=== PATIENT | female | born 1960 | race Caucasian/White ===

== ENCOUNTER 2016-08-21 14:46 | Emergency (ER) | payer OTHER ==
[~2016-08-21] VITALS: Ht 171.4 cm; Wt 90.9 kg
[2016-08-21 14:48] VITALS: BP 153/89; PULSE 80; RESP 16; O2SAT 97
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
[2016-08-21 18:16] VITALS: BP 144/87; PULSE 75; O2SAT 96
--- NOTE | 2016-08-21 19:54 | DRSVH ---
PROCEDURE: CT BRAIN WITHOUT CONTRAST ([id number]) INDICATIONS: follow-up abnormal finding. TECHNIQUE: Noncontrast 4.5 mm thick angled axial sections acquired from the foramen magnum to the vertex, with c oronal reformats. COMPARISON: [facility], CT, CT BRAIN WO CON, 08/21/2016, 15:09. FINDINGS: Image quality: Excellent. CSF spaces: Basal cisterns are patent. No extra-axial fluid collections. Ventricles are normal in size and shape. Brain: No midline shift. No intracranial masses. The punctate right basal ganglia hyperdense focus is unchanged when compared with the study from earlier today. Green-white matter interface is normal. Skull and face: Calvarium and visualized facial bones are intact, without suspicious lesions. Sinuses: Visualized sinuses and mastoids are clear. IMPRESSION: 1. Findings most consistent with right basal ganglia calcification. No findings to suggest acute intr acranial hemorrhage. Dictated by: Shira Garcia M.D. on 08/21/2016 at 19:48 Approved by: Shira Garcia M.D. on 08/21/2016 at 19:52
[2016-08-21 20:33] VITALS: BP 137/77; PULSE 72; O2SAT 98
[2016-08-21 20:46] VITALS: BP 137/77; PULSE 72; RESP 16; O2SAT 98
== END 2016-08-21 20:47 | disposition home or self-care (01) ==
LOC: SED 14:46
DX: S06.0X0A Concussion without loss of consciousness, initial encounter (principal); R03.0 Elevated blood-pressure reading, without diagnosis of hypertension; M46.92 Unspecified inflammatory spondylopathy, cervical region; V11.0XXA Pedal cycle driver injured in collision with other pedal cycle in nontraffic accident, initial encounter; Y93.55 Activity, bike riding; Y92.488 Other paved roadways as the place of occurrence of the external cause; Y99.8 Other external cause status; Z88.2 Allergy status to sulfonamides